=== PATIENT | female | born 1995 | race Caucasian/White ===

== ENCOUNTER 2019-08-29 15:22 | Emergency (ER) | payer OTHER, SELFPAY ==
[2019-08-29 15:46] VITALS: BP 126/74; PULSE 107; RESP 20; TEMP 37.8; O2SAT 99
--- NOTE | 2019-08-29 16:44 | ED.GENADULT ---
HPI - General Adult General Chief complaint: Upper Respiratory Infection Stated complaint: COUGH Time Seen by Provider: 08/29/19 16:44 Source: patient Mode of arrival: ambulatory Limitations: no limitations History of Present Illness HPI narrative: 24-year-old female patient presents to the [facility] with complaints of cold symptoms that started yesterday. Patient states that she has had just overall body aches and complaining of a runny nose, stuffy nose, sore throat. Patient states that she did get a flu shot this year. Patient states she is also had some vomiting and did vomit twice this morning. Patient states that she was able to keep down some Ritz crackers about an hour ago. Patient states that she does have history of diabetes and states she has been checking her sugars and they have been ranging anywhere from 80-1 50. Related Data Home Medications Medication Instructions Recorded Confirmed Humalog Insulin 08/29/19 ibuprofen 200 mg PO Q6H PRN 08/29/19 08/29/19 Allergies Allergy/AdvReac Type Severity Reaction Status Date / Time Penicillins Allergy Mild EMESIS Verified 08/29/19 15:56 Review of Systems Review of Systems: Narrative: CONSTITUTIONAL: Positive fever, chills, body aches and sweats. EYES: Denies visual changes, redness, or discharge. ENT: Positive rhinorrhea, congestion, sore throat, denies otalgia. CARDIOVASCULAR: Denies chest pain, palpitations, or edema. RESPIRATORY: Positive cough denies dyspnea. GASTROINTESTINAL: Denies abdominal pain, nausea, vomiting, or diarrhea. GENITOURINARY: Denies dysuria or hematuria. SKIN: Denies rash or itching. MUSCULOSKELETAL: Denies back pain, joint pain, or myalgia. NEUROLOGIC: Denies headache, numbness, or weakness. PSYCHIATRIC: Denies anxiety or depression. PMFSH Comments At the time of my signature I agree with nursing past medical history, surgical, social, and family history. There is no relevant family history pertinent to the presenting complaint. Exam Narrative: Exam Narrative: GENERAL: ill-appearing, well-nourished, and in no acute distress. HEAD: Normocephalic, atraumatic. No tenderness noted to frontal and maxillary sinuses on palpation. EYES: PERRLA and EOMI. ENT: Nares with erythema and edema noted bilaterally with the right nare swollen shut, no rhinorrhea or epistaxis. Mucous membranes moist. Posterior pharynx with 2+ tonsil enlargement no exudates or lesions present. Bilateral TMs are clear no erythema or foreign bodies in the canal. NECK: Supple. No lymphadenopathy CHEST: Clear to auscultation. No respiratory distress. Patient able talk in clear complete sentences. HEART: Regular rate and rhythm. No murmur heard. Normal peripheral pulses. ABDOMEN: Soft, nontender, nondistended, normal active bowel sounds. EXTREMITIES: Normal range of motion. No edema. SKIN: Warm, dry, no rash. NEURO: No focal deficits. Alert and oriented x3. Course Reevaluation(s) Reevaluation #1: Notify patient that she is negative today for influenza and strep. Discussed with patient I am to send her home with some Zofran to help with the nausea and vomiting symptoms. Discussed with her I would encourage her to get [id number] Zyrtec and Flonase to help with the congestion symptoms. Discussed with her she also needs to be taking [id number] Tylenol and ibuprofen for her symptoms. Discussed with her she also needs to be checking her sugars more often. Patient verbalized understanding denies any other questions or concerns at this time. Date: 08/29/19 Time: 17:11 Vital Signs Vital signs: Vital Signs Temperature 37.8 C H 08/29/19 15:46 Pulse Rate 107 H 08/29/19 15:46 Respiratory Rate 08/29/19 15:46 Blood Pressure 126/74 08/29/19 15:46 Pulse Oximetry 99 08/29/19 15:46 Temperature 37.8 C H 08/29/19 15:46 Pulse Rate 107 H 08/29/19 15:46 Respiratory Rate 08/29/19 15:46 Blood Pressure 126/74 08/29/19 15:46 Pulse Oximetry 99 0
[2019-08-29] MEDS: ONDANSETRON HCL ODT 4 MG TABLET SUBLINGUAL (16:59)
== END 2019-08-29 17:12 | disposition home or self-care (01) ==
PROVIDERS: Emergency Provider Nurse Practitioner Family
DX: J06.9 Acute upper respiratory infection, unspecified (principal); R11.2 Nausea with vomiting, unspecified; E11.9 Type 2 diabetes mellitus without complications
CPT/HCPCS: 87081; 87804; 87880; 99213; A9270; G0463

== ENCOUNTER 2019-09-09 16:56 | Emergency (ER) | payer OTHER, SELFPAY ==
--- NOTE | ~2019-09-09 | XR_ITS ---
EXAMINATION: XR chest 2V 09/09/2019 17:56 INDICATION: Cough. PROCEDURE: 2 view chest COMPARISON: 09/28/2018 FINDINGS: The lungs are clear. The cardiomediastinal silhouette is within normal limits. There are no pleural effusions. There is no pneumothorax suspected. IMPRESSION: 1: NO ACUTE CARDIOPULMONARY DISEASE. Reviewed, dictated and finalized at location A. ENTATION MANAGER
[2019-09-09 17:02] VITALS: BP 120/77; PULSE 89; RESP 16; TEMP 36.7; O2SAT 97
--- NOTE | 2019-09-09 18:20 | ED.URI ---
HPI - URI/Sore Throat General Chief Complaint: Upper Respiratory Infection Stated Complaint: cough/cross/runny nose/sob Source: patient and RN notes reviewed Mode of arrival: ambulatory Limitations: no limitations History of Present Illness HPI Narrative: The patient, a non-smoker/nondrinker student with insulin pump, presents with cough. Patient states she has a 2-week history of cough, congestion and chills. Symptoms are slightly biphasic improved and now recurred or worsened in the last 2 days; no sore throat, earache, sputum changes, and she has possible nighttime wheeze [she use inhaler as a child rarely]. Symptoms are mild, persistent and worse upon awakening in the morning throughout the night; she was seen here and treated symptomatically for nausea/vomiting at the onset-with Zofran. Related Data Home Medications Medication Instructions Recorded Confirmed Humalog Insulin 08/29/19 ibuprofen 200 mg PO Q6H PRN 08/29/19 09/09/19 Allergies Allergy/AdvReac Type Severity Reaction Status Date / Time Penicillins Allergy Mild EMESIS Verified 09/09/19 17:06 Review of Systems Review of Systems: Narrative: General/Constitutional: No weight loss, POSSIBLE fever Eyes: N0: Redness,discharge Ears/Nose/Throat: No: Epistaxis,ear discharge Respiratory: Denies: Hemoptysis Gastrointestinal: No Vomiting, Bleeding-rectal Skin: No Lumps, eruption Neurologic: No Focal Weakness,Sz Hematologic: Denies: Petechiae/Purpura Psychiatric: No: Suicida ideationl All Other Systems: Reviewed and Negative PMFSH Comments At time of signature, agree with nursing past medical, surgical, social and family history. There is no relevant family history pertinent to the presenting complaint Exam Narrative: Exam Narrative: General Appearance: Well appearing, Well nourished EYE: PERRLA, Conjunctiva clear Ears: Auditory canal normal, TM normal Nose: Rhinorrhea, Mucousal erythema Mouth/Throat: MM moist, Uvula midline, Pharyngeal erythema Neck: Supple, No adenopathy Respiratory: No respiratory distress, Breath sounds equal, Clear to auscultation Cardiovascular: RRR, No JVD Musculoskeletal: Non tender, Normal strength Skin: Warm, Dry Neurological: A&O x3, CN II-XII intact Psychiatric: Normal mood, Normal affect Course Vital Signs Vital signs: Vital Signs Temperature 98.0 F 02/22/20 17:02 Pulse Rate 89 09/09/19 17:02 Respiratory Rate 16 09/09/19 17:02 Blood Pressure 120/77 09/09/19 17:02 Pulse Oximetry 97 09/09/19 17:02 Temperature 98.0 F 09/09/19 17:02 Pulse Rate 89 09/09/19 17:02 Respiratory Rate 16 09/09/19 17:02 Blood Pressure 120/77 09/09/19 17:02 Pulse Oximetry 97 09/09/19 17:02 MDM - URI/Sore Throat Lab Data Labs: Influenza A Screen Negative Reference Range: Negative Influenza B Screen Negative Reference Range: Negative Discharge Plan Discharge Clinical Impression: Influenza-like illness Patient Disposition: Home, Self-Care Condition: Stable Instructions: Antibiotic Form, Acute Bronchitis (ED) Prescriptions: New benzonatate [Tessalon Perles] 100 mg capsule 100 mg PO TID Qty: 20 RF: 1 codeine-guaifenesin 10-100 mg/5 mL liquid 7.5 ml PO Q6H PRN (Reason: cough) Qty: 118 RF: 0 cefuroxime axetil 500 mg tablet 500 mg PO Q12H Qty: 14 RF: 0 albuterol sulfate [Ventolin HFA] 90 mcg/actuation HFA aerosol inhaler 2 puff INHALATION QID PRN (Reason: shortness of breath or wheezing) Qty: 1 RF: 1 oseltamivir [Tamiflu] 75 mg capsule 75 mg PO Q12H 5 Days Qty: 10 RF: 0 No Action Humalog Insulin RF: 0 ibuprofen 200 mg Tablet 200 mg PO Q6H PRN (Reason: Fever) RF: 0 Follow-up/Referrals: UNKNOWN,DOCTOR [Primary Care Provider] - Stand Alone Forms: Work/School Release IP
== END 2019-09-09 18:28 | disposition home or self-care (01) ==
PROVIDERS: Emergency Provider Emergency Medicine
DX: R05 Cough (principal); R68.83 Chills (without fever); R09.89 Other specified symptoms and signs involving the circulatory and respiratory systems; E11.9 Type 2 diabetes mellitus without complications; Z96.41 Presence of insulin pump (external) (internal)
CPT/HCPCS: 71046; 87804; 99213; G0463